=== PATIENT | male | born 1975 | race African-American/Black ===

== ENCOUNTER 2018-08-07 09:12 | Inpatient (IN) | payer MEDICAID ==
[~2018-08-07] VITALS: Ht 190.5 cm; Wt 45.4 kg
[2018-08-07 09:15] VITALS: BP 135/78
[2018-08-07] MEDS ORDERED: NACL 0.9% 1,000 ML IV ONE (10:10)
[2018-08-07 10:48] LABS: BASOPHILS % (AUTO) 0.8 % (0.0-2.0); EOSINOPHILS # (AUTO) 0.2 K/uL (0-0.4); EOSINOPHILS % (AUTO) 4.4 % (0.0-4.0); HEMATOCRIT 45.9 % (36-52); LYMPHOCYTES # (AUTO) 1.4 K/uL (2.0-11.5); LYMPHOCYTES % (AUTO) 28.3 % (20.5-51.1); MEAN CORPUSCULAR HEMOGLOBIN 28 pg (27-31); MEAN CORPUSCULAR HGB CONC 33 g/dL (33-37); MONOCYTES # (AUTO) 0.4 K/uL (0.8-1.0); MONOCYTES % (AUTO) 8.1 % (1.7-9.3); NEUTROPHILS # (AUTO) 2.8 K/uL (1.8-7.7); NEUTROPHILS % (AUTO) 58.4 % (42.2-75.2); PLATELET COUNT (AUTO) 171 K/uL (140-450); RED BLOOD CELL COUNT(AUTO) 5.33 MIL/uL (4.20-6.10); RED CELL DISTRIBUTION WIDTH 14.1 % (11.6-13.7); WHITE BLOOD COUNT (AUTO) 4.8 K/uL (4.8-10.8)
[2018-08-07 11:05] LABS: ANION GAP 10.6 (8-16); CARBON DIOXIDE 32.3 mmol/L (21-32); CREATININE 0.9 mg/dL (0.7-1.3); POTASSIUM 3.9 mmol/L (3.5-5.1)
[2018-08-07 11:15] LABS: PROTHROMBIN TIME 11.4 secs (10.8-13.4)
[2018-08-07 11:17] LABS: ALBUMIN 3.7 g/dL (3.4-5.0); TOTAL BILIRUBIN 0.3 mg/dL (0.0-1.0)
[2018-08-07] MEDS ORDERED: LORazepam 2 MG/ML VIAL IVP ONE (11:45)
[2018-08-07 11:48] LABS: APPEARANCE,URINE CLEAR (CLEAR); BILIRUBIN,URINE NEGATIVE (NEGATIVE); BLOOD, URINE NEGATIVE (NEGATIVE); COLOR,URINE YELLOW (YELLOW); LEUKOCYTE ESTERASE ,URINE NEGATIVE (NEGATIVE); NITRITE, URINE NEGATIVE (NEGATIVE); UGLUCOSE NEGATIVE (NEGATIVE)
[2018-08-07 11:49] LABS: RBC,URINE NONE SEEN /HPF (0-5); WBC,URINE NONE SEEN /HPF (0-5)
[2018-08-07] MEDS ORDERED: NACL 0.9% 1,000 ML IV SCH (12:14)
[2018-08-07] MEDS ORDERED: HYDROcodone/APAP 5/325 MG 1 TAB TAB PO PRN (12:15)
[2018-08-07] MEDS ORDERED: DOCUSATE SODIUM 100 MG GELCAP PO PRN (12:15)
[2018-08-07] MEDS ORDERED: ONDANSETRON 4 MG/2 ML VIAL IM/IVP PRN (12:15)
[2018-08-07] MEDS ORDERED: ZOLPIDEM 5 MG TAB PO PRN (12:15)
[2018-08-07] MEDS ORDERED: ACETAMINOPHEN 325 MG TAB PO PRN (12:15)
[2018-08-07] MEDS ORDERED: SODIUM PHOSPHATE 118 ML ENEM RC SCH (13:00)
[2018-08-07 13:29] LABS: BARBITURATE, URINE NEG. ng/ml (NEG <=200); BENZODIAZEPINE, URINE NEG. ng/mL (NEG <=200); CANNABINOID, URINE NEG. ng/mL (NEG <=50); COCAINE, URINE NEG. ng/mL (NEG <=300); OPIATE, URINE NEG. ng/mL (NEG <=2000); PHENCYCLIDINE SCREEN,URINE NEG. ng/mL (NEG <=25)
[2018-08-07] MEDS ORDERED: MIRABULK PO (13:32)
[2018-08-07] MEDS ORDERED: VITD1000 PO (13:32)
[2018-08-07] MEDS ORDERED: QUET25TA PO (13:33)
[2018-08-07] MEDS ORDERED: [UNRECOGNIZED DRUG - CODE] PO (13:33)
[2018-08-07] MEDS ORDERED: BISA5ECT43 RC (13:33)
[2018-08-07] MEDS ORDERED: [UNRECOGNIZED DRUG - CODE] PO (13:33)
[2018-08-07] MEDS ORDERED: NA P133N16 RC (13:33)
[2018-08-07] MEDS ORDERED: DOCU-299 PO (13:33)
[2018-08-07] MEDS ORDERED: BEN (13:33)
[2018-08-07] MEDS ORDERED: SIME80CT70 PO (13:33)
[2018-08-07] MEDS ORDERED: LEVE750T25 PO (13:33)
[2018-08-07] MEDS ORDERED: ACET325C7 PO (13:33)
[2018-08-07] MEDS ORDERED: ROB1 PO (13:33)
[2018-08-07] MEDS ORDERED: ATRO10DR PO (13:33)
[2018-08-07] MEDS ORDERED: [UNRECOGNIZED DRUG - CODE] TP (13:35)
[2018-08-07] MEDS ORDERED: CHLO480L1 PO (13:35)
[2018-08-07] MEDS ORDERED: [UNRECOGNIZED DRUG - CODE] PO (13:35)
[2018-08-07] MEDS ORDERED: DEXL60EC PO (13:36)
[2018-08-07 14:00] LABS: MAGNESIUM 1.9 mg/dL (1.8-2.4); PHOSPHORUS 4.1 mg/dL (2.5-4.9)
[2018-08-07] MEDS ORDERED: BISACODYL 10 MG SUPP RC SCH (14:00)
[2018-08-07 14:01] LABS: CHOL/HDL RATIO 3.4 (1-4.5); THYROID STIMULATING HORMONE 0.61 uIU/mL (0.34-3.74)
[2018-08-07 15:00] VITALS: BP 119/74
[2018-08-07] MEDS: DEXT 5% /NACL 0.9% 1,000 ML IV SCH (15:19)
[2018-08-07 16:00] VITALS: BP 135/96
[2018-08-07] MEDS ORDERED: LORazepam 2 MG/ML VIAL IM/IVP PRN (16:00)
[2018-08-07] MEDS ORDERED: MAGNESIUM CITRATE 300 ML BTL PO SCH (18:43)
[2018-08-07 20:00] VITALS: BP 103/57
[2018-08-07] MEDS ORDERED: LACTULOSE 20 GM/30 ML UDC PO SCH (21:00)
[2018-08-07] MEDS ORDERED: SENNA 8.6 MG TAB PO SCH (21:00)
[2018-08-08] VITALS: BP 119/61
[2018-08-08] MEDS ORDERED: LORazepam 2 MG/ML VIAL IVP SCH
[2018-08-08 03:25] LABS: ANION GAP 10.1 (8-16); CREATININE 0.8 mg/dL (0.7-1.3); POTASSIUM 4.1 mmol/L (3.5-5.1)
[2018-08-08 04:00] VITALS: BP 104/57
[2018-08-08 04:34] LABS: BASOPHILS % (AUTO) 0.5 % (0.0-2.0); EOSINOPHILS # (AUTO) 0.3 K/uL (0-0.4); EOSINOPHILS % (AUTO) 5.9 % (0.0-4.0); HEMOGLOBIN 15.1 g/dL (12.0-18.0); LYMPHOCYTES # (AUTO) 1.8 K/uL (2.0-11.5); LYMPHOCYTES % (AUTO) 37.2 % (20.5-51.1); MEAN CORPUSCULAR HEMOGLOBIN 28 pg (27-31); MEAN CORPUSCULAR HGB CONC 33 g/dL (33-37); MONOCYTES # (AUTO) 0.5 K/uL (0.8-1.0); MONOCYTES % (AUTO) 9.3 % (1.7-9.3); NEUTROPHILS # (AUTO) 2.3 K/uL (1.8-7.7); NEUTROPHILS % (AUTO) 47.1 % (42.2-75.2); PLATELET COUNT (AUTO) 163 K/uL (140-450); RED BLOOD CELL COUNT(AUTO) 5.35 MIL/uL (4.20-6.10); RED CELL DISTRIBUTION WIDTH 13.7 % (11.6-13.7); WHITE BLOOD COUNT (AUTO) 4.9 K/uL (4.8-10.8)
[2018-08-08] MEDS ORDERED: SIMETHICONE 80 MG TAB.CHEW PO PRN (07:05)
[2018-08-08] MEDS ORDERED: SODIUM PHOSPHATE 118 ML ENEM RC PRN (07:05)
[2018-08-08 08:00] VITALS: BP 107/57
[2018-08-08] MEDS: PANTOPRAZOLE 40 MG TABEC PO SCH (08:53)
[2018-08-08] MEDS ORDERED: NACL 0.9% PO SCH (09:00)
[2018-08-08] MEDS ORDERED: levETIRAcetam 500 MG TAB PO SCH (09:00)
[2018-08-08] MEDS ORDERED: FLAXSEED OIL 1000 MG PO SCH (09:00)
[2018-08-08] MEDS ORDERED: NON-FORMULARY ITEM (Chlorhexidine Gluconate (Periogard 480 Ml) 15 ML) PO SCH (09:00)
[2018-08-08] MEDS ORDERED: [UNRECOGNIZED DRUG - OTHER] PO SCH (09:00)
[2018-08-08] MEDS ORDERED: POLYETHYLENE GLYCOL 17 GM/PKT PO SCH (09:00)
[2018-08-08] MEDS ORDERED: DOCUSATE SODIUM 100 MG GELCAP PO SCH (09:00)
[2018-08-08] MEDS ORDERED: DIMETHICONE TP SCH (09:00)
[2018-08-08] MEDS ORDERED: ATROPINE SULFATE PO SCH (09:00)
[2018-08-08] MEDS ORDERED: DEXLANSOPRAZOLE PO SCH (09:00)
[2018-08-08] MEDS ORDERED: FOS PO SCH (09:00)
[2018-08-08] MEDS ORDERED: CALCIUM CARBONATE 500 MG TAB.CHEW PO SCH (09:00)
[2018-08-08] MEDS ORDERED: GLYCOPYRROLATE 1 MG TAB PO SCH (09:00)
[2018-08-08] MEDS ORDERED: ZINC OXIDE TP SCH (09:00)
[2018-08-08] MEDS ORDERED: MAGNESIUM CITRATE 300 ML BTL PO SCH (09:30)
[2018-08-08] MEDS ORDERED: LORazepam 2 MG/ML VIAL IM/IVP PRN (09:55)
[2018-08-08] MEDS: BISACODYL 5 MG TABEC PO SCH (10:17)
[2018-08-08] MEDS: VITAMIN D 400 IU TAB PO SCH (10:17)
[2018-08-08] MEDS: QUEtiapine FUMARATE 25 MG TAB PO SCH ×2 (10:17→20:27)
[2018-08-08] MEDS: levETIRAcetam 500 MG TAB PO SCH ×2 (10:17→20:26)
[2018-08-08 12:00] VITALS: BP 127/70
[2018-08-08] MEDS ORDERED: ACETAMINOPHEN 325 MG TAB PO PRN (12:00)
[2018-08-08] MEDS: DEXT 5% /NACL 0.9% 1,000 ML IV SCH (13:50)
[2018-08-08] MEDS: SENNA 8.6 MG TAB PO SCH ×2 (14:39→17:29)
[2018-08-08] MEDS: LACTULOSE 20 GM/30 ML UDC PO SCH ×3 (14:39→20:25)
[2018-08-08] MEDS: POLYETHYLENE GLYCOL 17 GM/PKT PO SCH ×2 (14:40→17:29)
[2018-08-08] MEDS: ATROPINE 1% PO SCH ×2 (14:41→17:29)
[2018-08-08 16:00] VITALS: BP 109/64
[2018-08-08 20:00] VITALS: BP 106/72
[2018-08-09] VITALS (12 sets, daily range): BP systolic 106–139; BP diastolic 52–86
[2018-08-09 06:04] LABS: BASOPHILS % (AUTO) 0.4 % (0.0-2.0); EOSINOPHILS # (AUTO) 0.2 K/uL (0-0.4); EOSINOPHILS % (AUTO) 2.5 % (0.0-4.0); HEMATOCRIT 49.2 % (36-52); HEMOGLOBIN 15.9 g/dL (12.0-18.0); LYMPHOCYTES # (AUTO) 1.5 K/uL (2.0-11.5); MEAN CORPUSCULAR HEMOGLOBIN 28 pg (27-31); MEAN CORPUSCULAR HGB CONC 32 g/dL (33-37); MEAN CORPUSCULAR VOLUME 86.8 fL (80-94); MONOCYTES # (AUTO) 0.5 K/uL (0.8-1.0); MONOCYTES % (AUTO) 6.2 % (1.7-9.3); NEUTROPHILS # (AUTO) 6.1 K/uL (1.8-7.7); NEUTROPHILS % (AUTO) 72.9 % (42.2-75.2); PLATELET COUNT (AUTO) 171 K/uL (140-450); RED BLOOD CELL COUNT(AUTO) 5.66 MIL/uL (4.20-6.10); RED CELL DISTRIBUTION WIDTH 13.9 % (11.6-13.7); WHITE BLOOD COUNT (AUTO) 8.3 K/uL (4.8-10.8)
[2018-08-09] MEDS: PANTOPRAZOLE 40 MG TABEC PO SCH (06:17)
[2018-08-09 06:27] LABS: ANION GAP 10.5 (8-16); CARBON DIOXIDE 30.6 mmol/L (21-32); CREATININE 0.9 mg/dL (0.7-1.3); POTASSIUM 4.1 mmol/L (3.5-5.1)
[2018-08-09] MEDS: LACTULOSE 20 GM/30 ML UDC PO SCH (08:55)
[2018-08-09] MEDS: VITAMIN D 400 IU TAB PO SCH (08:56)
[2018-08-09] MEDS: SENNA 8.6 MG TAB PO SCH (08:56)
[2018-08-09] MEDS: POLYETHYLENE GLYCOL 17 GM/PKT PO SCH ×3 (08:57→17:00)
[2018-08-09] MEDS: levETIRAcetam 500 MG TAB PO SCH ×2 (08:57→20:36)
[2018-08-09] MEDS: QUEtiapine FUMARATE 25 MG TAB PO SCH ×2 (08:57→20:36)
[2018-08-09] MEDS: ATROPINE 1% PO SCH ×3 (09:00→17:30)
[2018-08-09] MEDS ORDERED: DEXT 5% / NACL 0.45% 1,000 ML IV SCH (14:00)
[2018-08-09] MEDS ORDERED: fentaNYL 0.05 MG/ML VIAL ONE (14:08)
[2018-08-09] MEDS ORDERED: MIDAZOLAM 2 MG/2 ML VIAL ONE (14:08)
[2018-08-09] MEDS ORDERED: diphenhydrAMINE 50 MG/ML VIAL ONE (14:08)
[2018-08-10] VITALS: BP 104/61
[2018-08-10 04:00] VITALS: BP 113/60
[2018-08-10 06:32] LABS: BASOPHILS % (AUTO) 0.7 % (0.0-2.0); EOSINOPHILS # (AUTO) 0.3 K/uL (0-0.4); HEMATOCRIT 43.1 % (36-52); LYMPHOCYTES # (AUTO) 1.5 K/uL (2.0-11.5); LYMPHOCYTES % (AUTO) 27.9 % (20.5-51.1); MEAN CORPUSCULAR HEMOGLOBIN 28 pg (27-31); MEAN CORPUSCULAR HGB CONC 32 g/dL (33-37); MEAN CORPUSCULAR VOLUME 86.8 fL (80-94); MONOCYTES # (AUTO) 0.5 K/uL (0.8-1.0); MONOCYTES % (AUTO) 8.9 % (1.7-9.3); NEUTROPHILS # (AUTO) 3.1 K/uL (1.8-7.7); NEUTROPHILS % (AUTO) 57.5 % (42.2-75.2); PLATELET COUNT (AUTO) 141 K/uL (140-450); RED BLOOD CELL COUNT(AUTO) 4.97 MIL/uL (4.20-6.10); RED CELL DISTRIBUTION WIDTH 13.9 % (11.6-13.7); WHITE BLOOD COUNT (AUTO) 5.4 K/uL (4.8-10.8)
[2018-08-10] MEDS: NACL 0.45% 1,000 ML IV SCH (06:33)
[2018-08-10 07:07] LABS: ANION GAP 12.2 (8-16); CARBON DIOXIDE 27.7 mmol/L (21-32); CREATININE 0.9 mg/dL (0.7-1.3); POTASSIUM 3.9 mmol/L (3.5-5.1)
[2018-08-10 07:30] VITALS: BP 107/65
[2018-08-10] MEDS: LACTULOSE 20 GM/30 ML UDC PO SCH (09:55)
[2018-08-10] MEDS ORDERED: ACETAMINOPHEN EXTRA STRENGTH 500 MG TAB PO PRN (09:55)
[2018-08-10] MEDS: VITAMIN D 400 IU TAB PO SCH (09:55)
[2018-08-10] MEDS: POLYETHYLENE GLYCOL 17 GM/PKT PO SCH ×3 (09:56→17:00)
[2018-08-10] MEDS: BISACODYL 5 MG TABEC PO SCH (09:56)
[2018-08-10] MEDS: SENNA 8.6 MG TAB PO SCH (09:56)
[2018-08-10] MEDS: QUEtiapine FUMARATE 25 MG TAB PO SCH ×2 (09:56→20:59)
[2018-08-10] MEDS: levETIRAcetam 500 MG TAB PO SCH ×2 (09:56→20:59)
[2018-08-10] MEDS: ATROPINE 1% PO SCH ×3 (10:04→17:00)
[2018-08-10 12:00] VITALS: BP 120/69
[2018-08-10 17:00] VITALS: BP 97/50
[2018-08-10 20:00] VITALS: BP 107/58
[2018-08-11] VITALS: BP 101/42
[2018-08-11] MEDS: NACL 0.45% 1,000 ML IV SCH (06:35)
[2018-08-11 07:39] LABS: EOSINOPHILS # (AUTO) 0.4 K/uL (0-0.4); HEMATOCRIT 39.5 % (36-52); MEAN CORPUSCULAR VOLUME 86.1 fL (80-94); MONOCYTES # (AUTO) 0.5 K/uL (0.8-1.0)
[2018-08-11 07:43] LABS: ANION GAP 9.7 (8-16); CARBON DIOXIDE 28.2 mmol/L (21-32); CREATININE 0.8 mg/dL (0.7-1.3); POTASSIUM 3.9 mmol/L (3.5-5.1)
[2018-08-11 07:55] LABS: BASOPHILS % (AUTO) 0.4 % (0.0-2.0); EOSINOPHILS % (AUTO) 6.1 % (0.0-4.0); LYMPHOCYTES # (AUTO) 1.7 K/uL (2.0-11.5); LYMPHOCYTES % (AUTO) 28.9 % (20.5-51.1); MEAN CORPUSCULAR HEMOGLOBIN 28 pg (27-31); MEAN CORPUSCULAR HGB CONC 33 g/dL (33-37); MONOCYTES % (AUTO) 8.7 % (1.7-9.3); NEUTROPHILS # (AUTO) 3.3 K/uL (1.8-7.7); NEUTROPHILS % (AUTO) 55.9 % (42.2-75.2); PLATELET COUNT (AUTO) 125 K/uL (140-450); RED BLOOD CELL COUNT(AUTO) 4.59 MIL/uL (4.20-6.10); RED CELL DISTRIBUTION WIDTH 13.6 % (11.6-13.7); WHITE BLOOD COUNT (AUTO) 5.8 K/uL (4.8-10.8)
[2018-08-11] MEDS ORDERED: NEOMYCIN/POLYMYXIN/BACITRACIN OIN 15 GM TUBE TP SCH (09:00)
[2018-08-11] MEDS: ATROPINE 1% PO SCH (09:00)
[2018-08-11] MEDS ORDERED: POLY17PD46 PO (09:09)
[2018-08-11] MEDS ORDERED: SENN-89 PO (09:09)
[2018-08-11] MEDS: QUEtiapine FUMARATE 25 MG TAB PO SCH (10:19)
[2018-08-11] MEDS: LACTULOSE 20 GM/30 ML UDC PO SCH (10:19)
[2018-08-11] MEDS: VITAMIN D 400 IU TAB PO SCH (10:19)
[2018-08-11] MEDS: SENNA 8.6 MG TAB PO SCH (10:19)
[2018-08-11] MEDS: levETIRAcetam 500 MG TAB PO SCH (10:20)
[2018-08-11] MEDS: POLYETHYLENE GLYCOL 17 GM/PKT PO SCH (10:20)
== END 2018-08-11 13:15 | DRG 247 ==
LOC: MED 09:12 → MTU 12:14
PROVIDERS: ADMIT General Practice; ATTEND General Practice
PROC: 0DB68ZX Excision of Stomach, Via Natural or Artificial Opening Endoscopic, Diagnostic (ICD-10-PCS; principal; 2018-08-09 16:00)
PROC: 0DJD8ZZ Inspection of Lower Intestinal Tract, Via Natural or Artificial Opening Endoscopic (ICD-10-PCS; 2018-08-09 16:00)
DX: K56.41 Fecal impaction (principal); E43 Unspecified severe protein-calorie malnutrition; E87.0 Hyperosmolality and hypernatremia; D69.6 Thrombocytopenia, unspecified; I95.9 Hypotension, unspecified; E87.8 Other disorders of electrolyte and fluid balance, not elsewhere classified; G80.0 Spastic quadriplegic cerebral palsy; K92.9 Disease of digestive system, unspecified; M81.0 Age-related osteoporosis without current pathological fracture; K21.9 Gastro-esophageal reflux disease without esophagitis; E78.5 Hyperlipidemia, unspecified; H91.93 Unspecified hearing loss, bilateral; J30.9 Allergic rhinitis, unspecified; H54.7 Unspecified visual loss; G40.909 Epilepsy, unspecified, not intractable, without status epilepticus; Z79.899 Other long term (current) drug therapy; Z68.1 Body mass index [BMI] 19.9 or less, adult
CPT/HCPCS: 36415; 71045; 80048; 80053; 80305; 81001; 83036; 83605; 83690; 83735; 83880; 84100; 84134; 84443; 84484; 85025; 85610; 85651; 85730; 86677; 87040; 87081; 87086; 92610; 93005; 96361; 96374; 99285; C1758; J1200; J2060; J2250; J3010; J7030; J7042; Q0092

== ENCOUNTER 2019-07-23 22:21 | Inpatient (IN) | payer MEDICAID ==
[~2019-07-23] VITALS: Ht 167.6 cm; Wt 41.3 kg
[~2019-07-23 22:21] MED LIST: ACET325C8 PO; ATRO10DR PO; BISA-188 RC; CHLO480L1 PO; DEXL60EC PO; DOCU-299 PO; LEVE750T25 PO; NA P133N16 RC; POLY17PD46 PO; QUET25TA PO; ROB1 PO; SENN-74 PO; SIME80TA22 PO; VITD1000 PO; [UNRECOGNIZED DRUG - CODE] PO; [UNRECOGNIZED DRUG - CODE] PO; [UNRECOGNIZED DRUG - CODE] PO; [UNRECOGNIZED DRUG - CODE] TP
[2019-07-23 22:35] VITALS: BP 104/73
--- NOTE | 2019-07-23 22:38 | NUR ---
TO LOBBY VIA WHEELCHAIR A/W BED.
--- NOTE | 2019-07-23 23:22 | NUR ---
PT TO BED #11 BY WHEEL CHAIR
--- NOTE | 2019-07-23 23:25 | NUR ---
PT CAME INTO ER WITH C/O N/V/D THAT STARTED TODAY, IN THE AFTERNOON. PT IS NON VERBAL AND IS WHEEL CHAIR BOUND. PT HAS NO PAIN 0/10 USING FLACC SCALE. PT HAS A CLUBHOUSE ATTENDANT AT BEDSIDE, PT IS CONTRACTED ON ALL FOUR EXTREMETIES. PT VOMITED ONE TIME PRIOR TO ER. ERMD MADE AWARE OF STATUS. SAFETY MEASURES IN PLACE.
--- NOTE | 2019-07-24 00:09 | NUR ---
Dr. Zavala examining patient.
[2019-07-24] MEDS ORDERED: NACL 0.9% 1,000 ML IV ONE (00:25)
[2019-07-24 00:35] LABS: HEMATOCRIT 52.7 % (36-52); WHITE BLOOD COUNT (AUTO) 8.4 K/uL (4.8-10.8)
[2019-07-24 00:42] LABS: HEMOGLOBIN 17.6 g/dL (12.0-18.0); MEAN CORPUSCULAR HEMOGLOBIN 30 pg (27-31); MEAN CORPUSCULAR HGB CONC 33 g/dL (33-37); MEAN CORPUSCULAR VOLUME 90.2 fL (80-94); PLATELET COUNT (AUTO) 127 K/uL (140-450); RED BLOOD CELL COUNT(AUTO) 5.84 MIL/uL (4.20-6.10)
--- NOTE | 2019-07-24 00:45 | NUR ---
URINE STRAIGHT CATH PERFORMED. 14 TAMAZIGHT. PT TOLLERATED PROCEDURE WELL. WALKED TO LAB.
[2019-07-24 00:49] LABS: ANION GAP 12.3 (8-16); CARBON DIOXIDE 33.2 mmol/L (21-32); POTASSIUM 4.5 mmol/L (3.5-5.1)
[2019-07-24 00:55] LABS: TOTAL BILIRUBIN 0.3 mg/dL (0.0-1.0)
[2019-07-24 01:13] LABS: APPEARANCE,URINE CLEAR (CLEAR); BILIRUBIN,URINE NEGATIVE (NEGATIVE); BLOOD, URINE NEGATIVE (NEGATIVE); COLOR,URINE YELLOW (YELLOW); LEUKOCYTE ESTERASE ,URINE NEGATIVE (NEGATIVE); NITRITE, URINE NEGATIVE (NEGATIVE); UGLUCOSE NEGATIVE (NEGATIVE)
[2019-07-24 01:48] LABS: BASOPHILS % (MANUAL) 0 % (0-2); EOSINOPHILS % (MANUAL) 4 % (0-4); LYMPHOCYTES % (MANUAL) 19 % (20-46); MONOCYTES % (MANUAL) 6 % (5-12)
[2019-07-24] MEDS ORDERED: MORPHINE SULFATE 2 MG/ML SYR IVP PRN (02:20)
[2019-07-24] MEDS ORDERED: ONDANSETRON 4 MG/2 ML VIAL IM/IVP PRN (02:20)
[2019-07-24] MEDS ORDERED: HYDROcodone/APAP 7.5/325 MG 1 TAB PO PRN (02:20)
[2019-07-24 02:45] LABS: PROTHROMBIN TIME 11.6 secs (10.8-13.4)
[2019-07-24] MEDS ORDERED: DICLOFENAC 1% GEL TP (02:45)
[2019-07-24] MEDS ORDERED: VALP250S20 PO (02:45)
[2019-07-24] MEDS ORDERED: BACL10TA4 PO (02:45)
[2019-07-24 02:50] LABS: CHOL/HDL RATIO 4.8 (1-4.5); FREE T4 (FREE THYROXINE) 0.86 ng/dL (0.76-1.46); MAGNESIUM 1.9 mg/dL (1.8-2.4); PHOSPHORUS 4.2 mg/dL (2.5-4.9); THYROID STIMULATING HORMONE 0.99 uIU/mL (0.34-3.74)
--- NOTE | 2019-07-24 03:15 | NUR ---
PT LAYING IN BED, AWAKE, MILDLY RESTLESS, AT BASELINE PER PT'S CAREGIVER. VS NOTED. PT'S WHEELCHAIR, BELONGINGS AND CLOTHES SENT WITH PT'S CAREGIVER. ALL NEEDS MET.
[2019-07-24 03:20] VITALS: BP 109/67
--- NOTE | 2019-07-24 03:20 | NUR ---
Patient will be admitted to care of DR MEYER. Admited to [facility]. Will go to room 111B. Belongings list completed. Report to INESSA LONGORIA.
--- NOTE | 2019-07-24 03:20 | NUR ---
RECEIVED FROM ED PATIENT VIA GURNEY ESCORTED BY CAREGIVER, PT CEREBRAL PALSY SPASTIC QUAD, GRAHAM PT. NON VERBAL, BEDREST. PT VITALS TAKEN; MRSA SWAB DONE. HISTORY PROVIDED BY CAREGIVER. PHYSICAL ASSESSMENT DONE. SKIN INTACT; BED PLACED IN LOW POSITTION. POC DISCUSSED TO CAREGIVER. CALL LIGHT PLACED W/IN EASY REACH Addendum: 07/24/19 at 0413 by Eryn Cowan RN PT MOANING, BUT CAREGIVER THAT IS HIS BASELINE PT HAS AGITATION.
[2019-07-24] MEDS: NACL 0.9% 1,000 ML IV SCH ×2 (03:43→18:15)
--- NOTE | 2019-07-24 04:11 | NUR ---
PT SLEEPING AT THIS TIME, NO RESPIRATORY DISTRESS NOTED
--- NOTE | 2019-07-24 07:15 | NUR ---
RECEIVED REPORT FROM CRYPTOLOGIC LINGUIST NURSE INESSA FOR CONTINUITY OF CARE. PT IN STABLE CONDITION. RESPIRATIONS EVEN AND UNLABORED, ROOM AIR. IV INTACT AND PATENT. SAFETY MEASURES IN PLACE. BED IN LOW POSITION. BED ALARM ON. CALL LIGHT AT BEDSIDE. WILL CONTINUE TO MONITOR.
[2019-07-24 08:00] VITALS: BP 116/64
--- NOTE | 2019-07-24 08:19 | NUR ---
PATIENT HAS BEEN SCREENED AND CATEGORIZED HIGH NUTRITION RISK. PATIENT WILL BE SEEN WITHIN 1-2 DAYS OF ADMISSION. 07/24/19-07/25/[address]
--- NOTE | 2019-07-24 09:33 | NUR ---
PT LYING IN BED CAREGIVER AT BEDSIDE. BED IN LOW POSITION. BED ALARM ON. CALL LIGHT AT BEDSIDE. WILL CONTINUE TO MONITOR.
[2019-07-24] MEDS ORDERED: BISACODYL 10 MG SUPP RC PRN (10:30)
[2019-07-24 10:37] LABS: BASOPHILS % (AUTO) 0.5 % (0.0-2.0); EOSINOPHILS # (AUTO) 0.4 K/uL (0-0.4); HEMATOCRIT 41.7 % (36-52); HEMOGLOBIN 13.6 g/dL (12.0-18.0); LYMPHOCYTES # (AUTO) 1.8 K/uL (2.0-11.5); LYMPHOCYTES % (AUTO) 30.9 % (20.5-51.1); MEAN CORPUSCULAR HEMOGLOBIN 30 pg (27-31); MEAN CORPUSCULAR HGB CONC 33 g/dL (33-37); MEAN CORPUSCULAR VOLUME 90.4 fL (80-94); MONOCYTES # (AUTO) 0.4 K/uL (0.8-1.0); MONOCYTES % (AUTO) 7.6 % (1.7-9.3); NEUTROPHILS # (AUTO) 3.1 K/uL (1.8-7.7); PLATELET COUNT (AUTO) 110 K/uL (140-450); RED BLOOD CELL COUNT(AUTO) 4.61 MIL/uL (4.20-6.10); RED CELL DISTRIBUTION WIDTH 14.3 % (11.6-13.7); WHITE BLOOD COUNT (AUTO) 5.8 K/uL (4.8-10.8)
[2019-07-24] MEDS ORDERED: MINERAL OIL 135 ML ENEM RC PRN (10:40)
[2019-07-24] MEDS ORDERED: POLYETHYLENE GLYCOL 17 GM/PKT PO SCH ×2 (10:43→21:00)
[2019-07-24] MEDS: levETIRAcetam 500 MG TAB PO SCH ×2 (10:54→20:48)
[2019-07-24] MEDS: GLYCOPYRROLATE 1 MG TAB PO SCH ×2 (10:54→20:48)
[2019-07-24] MEDS: DIVALPROEX 500 MG TABEC PO SCH ×2 (10:54→21:09)
[2019-07-24] MEDS: BACLOFEN 10 MG TAB PO SCH ×3 (10:55→18:16)
[2019-07-24] MEDS: DOCUSATE SODIUM 100 MG GELCAP PO SCH (10:55)
[2019-07-24 11:00] LABS: CREATININE 0.9 mg/dL (0.7-1.3); POTASSIUM 4.3 mmol/L (3.5-5.1)
[2019-07-24] MEDS ORDERED: BISACODYL 10 MG SUPP RC SCH (11:00)
[2019-07-24 11:19] LABS: ANION GAP 10.9 (8-16); CARBON DIOXIDE 29.4 mmol/L (21-32)
--- NOTE | 2019-07-24 11:47 | NUR ---
PT LYING IN BED ROCKING BACK AND FORTH AT THIS TIME. CAREGIVER EXPLAINS THIS IS NORMAL IF AT A STEADY PACE WITH A LOW MOAN. BED IN LOW POSITION. BED ALARM ON. CALL LIGHT AT BEDSIDE. WILL CONTINUE TO MONITOR.
--- NOTE | 2019-07-24 13:06 | NUR ---
07/24/19 RD INITIAL ASSESSMENT COMPLETED PLEASE REFER TO NUTRITION ASSESSMENT UNDER CARE ACTIVITY FOR ESTIMATED NUTRITIONAL NEEDS. 1. RECOMMEND PUREE DIET WITH NECTAR THICK LIQUIDS TOLERATED 2. PROVIDE FEEDING ASSISTANCE WHEN PO DIET IS IMPLEMENTED 3. RD TO FOLLOW-UP 3-5 DAYS, MODERATE RISK GILA GRIGGS, RD
[2019-07-24] MEDS: SENNA 8.6 MG TAB PO SCH ×2 (13:07→18:17)
[2019-07-24] MEDS: POLYETHYLENE GLYCOL 17 GM/PKT PO SCH ×3 (13:07→20:49)
--- NOTE | 2019-07-24 13:23 | NUR ---
GAVE ORDERED DUE MEDICATIONS AT THIS TIME. PT IN STABLE CONDITION. WILL CONTINUE TO MONITOR. CAREGIVER AT BEDSIDE.
--- NOTE | 2019-07-24 13:51 | NUR ---
*S.T. Bedside swallow eval completed* See report. Pt presents w/ moderate oropharyngeal dysphagia c/b limited oral ROM, coordination, difficulty procuring oral bolus, delayed pharyngeal swallow response and lingual thrusting with each swallow. No overt s/s aspiration, however. Pt requires max assist with positioning to upright position due to kyphosis and contractures. Pt also requires 1:1 feeder. Recommend: 1) Advance to pureed diet, nectar thick liquids by spoon only. No straws. 2) P.O. meds okay whole and mixed with puree such as applesauce. 3) 1:1 feeder w/ aspiration precautions. Pt is functioning at his reported baseline. No further swallow tx indicated at this time. DC to [facility]. Endorsed to VON Tucker who was at bedside. Time [id number]
--- NOTE | 2019-07-24 15:02 | NUR ---
PT LYING IN BED SLEEP AT THIS TIME. BED IN LOW POSITION. BED ALARM ON. CALL LIGHT AT BEDSIDE. WILL CONTINUE TO MONITOR.
[2019-07-24 16:00] VITALS: BP 110/62
[2019-07-24] MEDS ORDERED: ALBUTEROL SULFATE/IPRATROPIU 3 ML SOL IH PRN (16:05)
--- NOTE | 2019-07-24 17:32 | NUR ---
PT LYING IN BED ROCKING AT A SLOW RHYTHM AT THIS TIME. BED IN LOW POSITION. BED ALARM ON. CALL LIGHT AT BEDSIDE. WILL CONTINUE TO MONITOR.
[2019-07-24] MEDS: METOCLOPRAMIDE 10 MG/2 ML INJ VIAL IVP SCH ×2 (18:16→23:33)
--- NOTE | 2019-07-24 19:35 | NUR ---
GAVE REPORT TO VIDEO PLAYER MECHANIC NURSE KELSI FOR CONTINUITY OF CARE. PT IN STABLE CONDITION.
--- NOTE | 2019-07-24 19:36 | NUR ---
RECD. RESTING IN BED, AWAKE, NON-VERBAL ONLY MAKE SOUNDS. RESPIRATION EVEN AND UNLABORED. IV OF NS AT 80 ML/HR INFUSING, RIGHT FOREARM G2O. SAFETY MEASURES ENFORCED,BED ON LOWEST POSITION, SIDE RAILS PADDED FOR SEIZURE PRECAUTION. INCONTINENT. BILATERAL LOWER EXTREMITIES CONTRACTED. PLAN OF CARE DISCUSSED. NEEDS REINFORCEMENT. NO APPEARANCE OF PAIN NOTED, FLACC - 0.
[2019-07-24 20:00] VITALS: BP 104/74
--- NOTE | 2019-07-24 20:00 | NUR ---
Patient's Plan of Care was discussed and reviewed with RECEPTION INTERVIEWER: KELSI CONKLIN LVN
--- NOTE | 2019-07-24 20:48 | NUR ---
DUE PO MEDICATIONS GIVEN WITH APPLE SAUCE, THICKENER USED FOR LIQUIDS. NO S/S OF ASPIRATION NOTED.
[2019-07-24] MEDS ORDERED: MAGNESIUM CITRATE 300 ML BTL PO SCH (21:00)
--- NOTE | 2019-07-24 21:15 | NUR ---
MANUEL HUNG AND RUNNING. PT TOLERATING WELL.
[2019-07-24] MEDS: PIPERACILLIN/TAZOBACTAM 3.375 GM in DEXTROSE 5% 50 ML IV SCH (21:28)
--- NOTE | 2019-07-24 23:33 | NUR ---
REGLAN GIVEN IVP. PT TOLERATED WELL.
--- NOTE | 2019-07-25 | NUR ---
STILL AWAKE, IN BED. CHECKED FOR BM, NONE NOTED.
[2019-07-25] MEDS: METOCLOPRAMIDE 10 MG/2 ML INJ VIAL IVP SCH ×4 (05:15→23:36)
[2019-07-25] MEDS: PIPERACILLIN/TAZOBACTAM 3.375 GM in DEXTROSE 5% 50 ML IV SCH ×3 (05:15→21:57)
--- NOTE | 2019-07-25 05:15 | NUR ---
REGLAN GIVEN IVP. ZOSYN HUNG AND RUNNING. PT TOLERATING WELL.
[2019-07-25] MEDS: NACL 0.45% 1,000 ML IV SCH ×2 (06:25→23:05)
--- NOTE | 2019-07-25 07:00 | NUR ---
ALL MEDICATIONS FOR BM GIVEN BUT PATIENT STILL HAS NO BM. WILL ENDORSE TO AM NURSE FOR CONTINUITY OF CARE.
--- NOTE | 2019-07-25 07:15 | NUR ---
RECEIVED BEDSIDE REPORT FROM DEGREASING SOLUTION MIXER NURSE FOR CONTINUITY OF CARE. PATIENT IS AWAKE AND RESTING ON BED AT THIS TIME. PATIENT IS AAOX0, APHASIC AND DEAFNESS ON BOTH EARS, BLIND BILATERALLY. RESPIRATION EVEN AND UNLABORED ON RA. NO SIGNS OF DISTRESS NOTED. IV PATENT AND INTACT, INFUSING PER MD ORDER. PATIENT IS INCONTINENT AND BEDREST. SKIN INTACT AND CLEAN. SEIZURE PRECAUTION AND FALL PRECAUTION IN PLACE. BED IN LOW POSITION AND CALL LIGHT WITHIN REACH. BED ALARM ACTIVATED.
[2019-07-25 07:39] LABS: BASOPHILS % (AUTO) 0.4 % (0.0-2.0); EOSINOPHILS # (AUTO) 0.1 K/uL (0-0.4); EOSINOPHILS % (AUTO) 0.8 % (0.0-4.0); HEMATOCRIT 41.8 % (36-52); HEMOGLOBIN 13.7 g/dL (12.0-18.0); LYMPHOCYTES # (AUTO) 1.6 K/uL (2.0-11.5); LYMPHOCYTES % (AUTO) 22.2 % (20.5-51.1); MEAN CORPUSCULAR HEMOGLOBIN 30 pg (27-31); MEAN CORPUSCULAR HGB CONC 33 g/dL (33-37); MEAN CORPUSCULAR VOLUME 90.5 fL (80-94); MONOCYTES # (AUTO) 0.6 K/uL (0.8-1.0); MONOCYTES % (AUTO) 7.8 % (1.7-9.3); NEUTROPHILS # (AUTO) 5.1 K/uL (1.8-7.7); NEUTROPHILS % (AUTO) 68.8 % (42.2-75.2); PLATELET COUNT (AUTO) 107 K/uL (140-450); RED BLOOD CELL COUNT(AUTO) 4.62 MIL/uL (4.20-6.10); RED CELL DISTRIBUTION WIDTH 14.1 % (11.6-13.7); WHITE BLOOD COUNT (AUTO) 7.4 K/uL (4.8-10.8)
[2019-07-25 07:58] LABS: CARBON DIOXIDE 25.4 mmol/L (21-32); CREATININE 0.9 mg/dL (0.7-1.3); POTASSIUM 3.4 mmol/L (3.5-5.1)
[2019-07-25 08:00] VITALS: BP 95/58
[2019-07-25 08:08] LABS: MAGNESIUM 2.1 mg/dL (1.8-2.4); PHOSPHORUS 3.2 mg/dL (2.5-4.9)
[2019-07-25] MEDS ORDERED: POTASSIUM CHLORIDE 10 MEQ TABER PO SCH (09:00)
[2019-07-25] MEDS ORDERED: SENNA 8.6 MG TAB PO SCH (09:00)
[2019-07-25] MEDS: DOCUSATE SODIUM 100 MG GELCAP PO SCH (09:48)
[2019-07-25] MEDS: GLYCOPYRROLATE 1 MG TAB PO SCH ×2 (09:48→21:17)
[2019-07-25] MEDS: DIVALPROEX 500 MG TABEC PO SCH ×2 (09:49→21:18)
[2019-07-25] MEDS: SENNA 8.6 MG TAB PO SCH ×3 (09:49→17:12)
[2019-07-25] MEDS: levETIRAcetam 500 MG TAB PO SCH ×2 (09:49→21:17)
[2019-07-25] MEDS: BACLOFEN 10 MG TAB PO SCH ×3 (09:49→17:12)
[2019-07-25] MEDS: POLYETHYLENE GLYCOL 17 GM/PKT PO SCH ×4 (09:50→21:19)
--- NOTE | 2019-07-25 09:50 | NUR ---
ADMINISTERED MEDS PER MD ORDER, MIXED WITH APPLE SAUCE AND THICKENED WATER FOR ASPIRATION PRECAUTION, PATIENT TOLERATED WELL. MEDS EDUCATION PROVIDED TO PATIENT AND REINFORCEMENT NEEDED. PATIENT AWAKE AND RESTING ON BED. FLACC 0. RESPIRATION EVEN AND UNLABORED ON RA. NO SIGNS OF DISTRESS NOTED. SAFETY MEASURES IN PLACE. FALL RISK PROTOCOL IN PLACE AND BED ALARM ACTIVATED. SEIZURE PRECAUTION IN PLACE AND BOTH SIDE RAILS PADDED. BED IN LOW POSITION AND CALL LIGHT WITHIN REACH.
--- NOTE | 2019-07-25 11:46 | NUR ---
PATIENT AWAKE AND RESTING ON BED AT THIS TIME. FLACC 0. NO SIGNS OF DISTRESS NOTED. SAFETY MEASURES IN PLACE. BED IN LOW POSITION AND CALL LIGHT WITHIN REACH. FALL RISK PROTOCOL IN PLACE AND BED ALARM ACTIVATED.
--- NOTE | 2019-07-25 12:28 | NUR ---
ADMINISTERED MED VIA IVP PER MD ORDER, PATIENT TOLERATED WELL. MED EDUCATION PROVIDED TO PATIENT AND REINFORCEMENT NEEDED. RAMP AGENT IS ASSISTING PATIENT FOR LUNCH. NO SIGNS OF DISTRESS NOTED. SAFETY MEASURES IN PLACE. BED ALARM ACTIVATED.
--- NOTE | 2019-07-25 15:48 | NUR ---
PATIENT IS RESTING ON BED AT THIS TIME. FLACC 0. NO SIGNS OF DISTRESS NOTED. SAFETY MEASURES IN PLACE. FALL RISK PROTOCOL IN PLACE AND BED ALARM ACTIVATED. SEIZURE PRECAUTION IN PLACE AND BOTH SIDE RAILS PADDED. BED IN LOW POSITION AND CALL LIGHT WITHIN REACH.
[2019-07-25 16:00] VITALS: BP 115/69
--- NOTE | 2019-07-25 16:56 | NUR ---
WITH ASSISTANCE FROM ARELY, ADMINISTERED BISACODYL SUPPOSITORY, PATIENT TOLERATED WELL. MEDS EDUCATION PROVIDED TO PATIENT AND REINFORCEMENT NEEDED. PATIENT AWAKE AND RESTING ON BED. FLACC 0. RESPIRATION EVEN AND UNLABORED ON RA. NO SIGNS OF DISTRESS NOTED. SAFETY MEASURES IN PLACE. FALL RISK PROTOCOL IN PLACE AND BED ALARM ACTIVATED. SEIZURE PRECAUTION IN PLACE AND BOTH SIDE RAILS PADDED. BED IN LOW POSITION AND CALL LIGHT WITHIN REACH.
[2019-07-25] MEDS ORDERED: BISACODYL 10 MG SUPP RC SCH (17:00)
[2019-07-25] MEDS ORDERED: MAGNESIUM CITRATE 300 ML BTL PO SCH (17:30)
[2019-07-25] MEDS ORDERED: MINERAL OIL 135 ML ENEM RC SCH (17:30)
--- NOTE | 2019-07-25 17:37 | NUR ---
WITH ASSISTANCE FROM ADDICTION NURSE, ADMINISTERED FLEET ENEMA, PATIENT TOLERATED WELL. MEDS EDUCATION PROVIDED TO PATIENT AND REINFORCEMENT NEEDED. PATIENT AWAKE AND RESTING ON BED. NO SIGNS OF DISTRESS NOTED. SAFETY MEASURES IN PLACE. FALL RISK PROTOCOL IN PLACE AND BED ALARM ACTIVATED. SEIZURE PRECAUTION IN PLACE AND BOTH SIDE RAILS PADDED. BED IN LOW POSITION AND CALL LIGHT WITHIN REACH.
--- NOTE | 2019-07-25 19:32 | NUR ---
ENDORSED PATIENT AT BEDSIDE TO CONTINUOUS PILLOWCASE CUTTER NURSE FOR CONTINUITY OF CARE. PATIENT AWAKE AND RESTING ON BED. NO SIGNS OF DISTRESS NOTED. SAFETY MEASURES IN PLACE. BED IN LOW POSITION AND CALL LIGHT WITHIN REACH. FALL RISK PROTOCOL IN PLACE AND BED ALARM ACTIVATED.
[2019-07-25 20:00] VITALS: BP 105/59
--- NOTE | 2019-07-25 20:00 | NUR ---
Patient's Plan of Care was discussed and reviewed with ULTRASONIC HAND SOLDERER: KELSI CONKLIN LVN
--- NOTE | 2019-07-25 21:15 | NUR ---
HAD A LARGE BM. CLEANSED AND REPOSITIONED IN BED, WITH PILLOWS. STOOL FOR OCCULT BLOOD COLLECTED AND SENT TO LAB.
--- NOTE | 2019-07-25 21:17 | NUR ---
DUE PO MEDICATIONS GIVEN WITH PUDDING AND JUICE WITH THICKENER. TOLERATED WELL.
--- NOTE | 2019-07-25 21:57 | NUR ---
MANUEL HUNG AND RUNNING. PT TOLERATING WELL.
--- NOTE | 2019-07-25 22:30 | NUR ---
AWAKE, OCCASIONALLY ROCKS HIMSELF IN BED.
--- NOTE | 2019-07-26 | NUR ---
SLEEPING COMFORTABLY IN BED. VS STABLE.
[2019-07-26] MEDS: NACL 0.45% 1,000 ML IV SCH (03:44)
[2019-07-26] MEDS: PIPERACILLIN/TAZOBACTAM 3.375 GM in DEXTROSE 5% 50 ML IV SCH ×3 (04:09→22:23)
--- NOTE | 2019-07-26 04:09 | NUR ---
MANUEL HUNG AND RUNNING. PT TOLERATING WELL.
[2019-07-26] MEDS: METOCLOPRAMIDE 10 MG/2 ML INJ VIAL IVP SCH ×3 (05:08→18:11)
--- NOTE | 2019-07-26 05:08 | NUR ---
REGLAN GIVEN IVP. PT TOLERATED WELL.
--- NOTE | 2019-07-26 06:33 | NUR ---
CHECKED FOR BM BUT NONE NOTED, ONLY VOIDED A LOT. CLEANSED AND REPOSITIONED FOR COMFORT IN BED WITH PILLOWS.
--- NOTE | 2019-07-26 07:20 | NUR ---
RECEIVED BEDSIDE REPORT FROM TIMBER CUTTER NURSE FOR CONTINUITY OF CARE. PATIENT IS AWAKE WITH BOTH EYES OPEN AND RESTING ON BED AT THIS TIME. PATIENT IS AAOX0, APHASIC AND DEAFNESS ON BOTH EARS, BLIND BILATERALLY. RESPIRATION EVEN AND UNLABORED ON RA. NO SIGNS OF DISTRESS NOTED. IV PATENT AND INTACT, INFUSING PER MD ORDER. PATIENT IS INCONTINENT AND BEDREST. SKIN INTACT AND CLEAN. ASPIRATION PRECAUTION, SEIZURE PRECAUTION AND FALL PRECAUTION IN PLACE. BED IN LOW POSITION AND CALL LIGHT WITHIN REACH. BED ALARM ACTIVATED.
[2019-07-26 08:00] VITALS: BP 91/47
[2019-07-26 09:25] LABS: BASOPHILS % (AUTO) 0.6 % (0.0-2.0); EOSINOPHILS # (AUTO) 0.6 K/uL (0-0.4); EOSINOPHILS % (AUTO) 9.9 % (0.0-4.0); HEMATOCRIT 40.7 % (36-52); HEMOGLOBIN 13.3 g/dL (12.0-18.0); LYMPHOCYTES # (AUTO) 1.9 K/uL (2.0-11.5); LYMPHOCYTES % (AUTO) 34.4 % (20.5-51.1); MEAN CORPUSCULAR HEMOGLOBIN 30 pg (27-31); MEAN CORPUSCULAR HGB CONC 33 g/dL (33-37); MEAN CORPUSCULAR VOLUME 91.1 fL (80-94); MONOCYTES # (AUTO) 0.4 K/uL (0.8-1.0); MONOCYTES % (AUTO) 7.7 % (1.7-9.3); NEUTROPHILS # (AUTO) 2.7 K/uL (1.8-7.7); NEUTROPHILS % (AUTO) 47.4 % (42.2-75.2); PLATELET COUNT (AUTO) 91 K/uL (140-450); RED BLOOD CELL COUNT(AUTO) 4.47 MIL/uL (4.20-6.10); RED CELL DISTRIBUTION WIDTH 13.9 % (11.6-13.7); WHITE BLOOD COUNT (AUTO) 5.6 K/uL (4.8-10.8)
[2019-07-26] MEDS: PANTOPRAZOLE 40 MG INJ VIAL IVP SCH (09:33)
[2019-07-26] MEDS: GLYCOPYRROLATE 1 MG TAB PO SCH ×2 (09:33→22:21)
[2019-07-26] MEDS: DOCUSATE SODIUM 100 MG GELCAP PO SCH (09:34)
[2019-07-26] MEDS: DIVALPROEX 500 MG TABEC PO SCH ×2 (09:34→22:20)
[2019-07-26] MEDS: SENNA 8.6 MG TAB PO SCH ×3 (09:34→18:11)
[2019-07-26] MEDS: levETIRAcetam 500 MG TAB PO SCH ×2 (09:34→22:20)
[2019-07-26] MEDS: BACLOFEN 10 MG TAB PO SCH ×3 (09:34→18:11)
[2019-07-26] MEDS: POLYETHYLENE GLYCOL 17 GM/PKT PO SCH ×4 (09:35→22:22)
--- NOTE | 2019-07-26 09:36 | NUR ---
ADMINISTERED MEDS PER MD ORDER, MIXED WITH APPLE SAUCE AND THICKENED WATER FOR ASPIRATION PRECAUTION, PATIENT TOLERATED WELL. MEDS EDUCATION PROVIDED TO PATIENT AND REINFORCEMENT NEEDED. HOLD HEPARIN SUBQ DUE TO LOW PLT 91 PATIENT AWAKE AND RESTING ON BED. FLACC 0. RESPIRATION EVEN AND UNLABORED ON RA. NO SIGNS OF DISTRESS NOTED. SAFETY MEASURES IN PLACE. FALL RISK PROTOCOL IN PLACE AND BED ALARM ACTIVATED. SEIZURE PRECAUTION IN PLACE AND BOTH SIDE RAILS PADDED. BED IN LOW POSITION AND CALL LIGHT WITHIN REACH.
[2019-07-26 09:37] LABS: ANION GAP 9.5 (8-16); CARBON DIOXIDE 30.7 mmol/L (21-32); CREATININE 0.9 mg/dL (0.7-1.3); POTASSIUM 4.2 mmol/L (3.5-5.1)
[2019-07-26 09:41] LABS: PHOSPHORUS 2.6 mg/dL (2.5-4.9)
--- NOTE | 2019-07-26 11:15 | NUR ---
SPECIAL EDUCATION SCIENCE TEACHER IS PROVIDING HYGIENE CARE AND REPOSITIONING PATIENT. NO SIGNS OF DISTRESS NOTED. SAFETY MEASURES IN PLACE.
--- NOTE | 2019-07-26 12:18 | NUR ---
ADMINISTERED MES VIA IVP PER MD ORDER, PATIENT TOLERATED WELL. MED EDUCATION PROVIDED TO PATIENT AND REINFORCEMENT NEEDED DUE TO MENTAL STATUS. PATIENT AWAKE AND RESTING ON BED. NO SIGNS OF DISTRESS NOTED. SFETY MEASURES IN PLACE. BED IN LOW POSITION AND CALL LIGHT WITHIN REACH. FALL RISK PROTOCOL IN PLACE AND BED ALARM ACTIVATED.
--- NOTE | 2019-07-26 13:11 | NUR ---
ADMINISTERED MEDS PER MD ORDER, MIXED WITH APPLE SAUCE AND THICKENED WATER FOR ASPIRATION PRECAUTION, PATIENT TOLERATED WELL. MEDS EDUCATION PROVIDED TO PATIENT AND REINFORCEMENT NEEDED. FLACC 0. RESPIRATION EVEN AND UNLABORED ON RA. PATIENT IS RESTING ON BED AT THIS TIME. NO SIGNS OF DISTRESS NOTED. SAFETY MEASURES IN PLACE. FALL RISK PROTOCOL IN PLACE AND BED ALARM ACTIVATED. SEIZURE PRECAUTION IN PLACE AND BOTH SIDE RAILS PADDED. BED IN LOW POSITION AND CALL LIGHT WITHIN REACH.
[2019-07-26] MEDS ORDERED: BISACODYL 10 MG SUPP RC SCH (14:00)
[2019-07-26 16:00] VITALS: BP 97/50
--- NOTE | 2019-07-26 16:12 | NUR ---
Biometrics Consultant Note: Per House Manager Janae from [place] , they cannot accept patient back at their facility if he is in need of abx iv, I informed of this.
--- NOTE | 2019-07-26 18:11 | NUR ---
ADMINISTERED MEDS PER MD ORDER, MIXED WITH APPLE SAUCE AND THICKENED WATER FOR ASPIRATION PRECAUTION, PATIENT TOLERATED WELL. MEDS EDUCATION PROVIDED TO PATIENT AND REINFORCEMENT NEEDED. FLACC 0. PONDMAN IS ASSISTING PATIENT TO EAT DINNER AT THIS TIME. NO SIGNS OF DISTRESS NOTED. SAFETY MEASURES IN PLACE. FALL RISK PROTOCOL IN PLACE AND BED ALARM ACTIVATED. SEIZURE PRECAUTION IN PLACE AND BOTH SIDE RAILS PADDED. BED IN LOW POSITION AND CALL LIGHT WITHIN REACH.
--- NOTE | 2019-07-26 19:21 | NUR ---
RECIEVED PT AWAKE , ALERT TO ENVIRONMENT STIMULI , BUT NON VERBAL , HX CEREBRAL PALSY SPASTIC , NID , V/S WNL . ON FALL /SAFETY PRECAUTION PROTOCOL - BED ALARM ON . ON SAP - ON PUREE DIET AND THICKENED LIQ. LOW HODA SCALE - INCONTINENT . PLAN OF CARE DISCUSSED BUT POOR UNDERSTANDING DUE TO MENTAL STATUS -CALL LIGHT WITHIN REACH , ON S2 PRECAUTION PROTOCOL . WILL CONT. TO MONITOR.
--- NOTE | 2019-07-26 19:21 | NUR ---
ENDORSED PATIENT AT BEDSIDE TO HITCH TECHNICIAN NURSE FOR CONTINUITY OF CARE. PATIENT AWAKE AND RESTING ON BED. NO SIGNS OF DISTRESS NOTED. SAFETY MEASURES IN PLACE. BED IN LOW POSITION AND CALL LIGHT WITHIN REACH. FALL RISK PROTOCOL IN PLACE AND BED ALARM ACTIVATED.
--- NOTE | 2019-07-26 22:00 | NUR ---
MADE ROUNDS , NO SIGN OF DISTRESS NOTED AT THIS TIME. WILL CONT, TO MONITOR.
[2019-07-27] VITALS: BP 110/60
--- NOTE | 2019-07-27 | NUR ---
VOIDED - MODERATELY SOAKED - GOOD U.O . NO SIGNS OF DISTRESS NOTED AT THIS TIME. WILL CONT. TO MONITOR.
[2019-07-27] MEDS: METOCLOPRAMIDE 10 MG/2 ML INJ VIAL IVP SCH ×3 (00:47→13:11)
--- NOTE | 2019-07-27 02:00 | NUR ---
MADE ROUNDS - SLEEPING - NO SIGNS OPF DISTRESS NOTED AT THIS TIME, STILL NO BM.
--- NOTE | 2019-07-27 04:00 | NUR ---
MADE ROUNDS . RESP. EVEN AND EQUAL . FLACC O- WILL CONT. TO MONITOR . BED ALARM ON.
[2019-07-27] MEDS: PIPERACILLIN/TAZOBACTAM 3.375 GM in DEXTROSE 5% 50 ML IV SCH ×2 (05:23→13:10)
--- NOTE | 2019-07-27 07:30 | NUR ---
ENDORSED TO AM SHIFT WITH STABLE CONDITION.
--- NOTE | 2019-07-27 07:31 | NUR ---
RECEIVED REPORT FROM FINANCIAL REPORTING ADVISOR RN. PT IS AWAKE BUT NON VERBAL AND DOES NOT SHOW KNOWLEDGE OF NAME. PT SKIN IS INTACT. IV IS IN THE R FOREARM 20G INFUSING 1/2NS @60ML/HR. PT CONTRACTED IN THE BUE/BLE. ALL NEEDS CURRENTLY MET. BED IN LOW POSITION, CALL LIGHT WITHIN REACH. BED ALARM ON FOR PT SAFETY. WILL CONTINUE TO ROUND FREQUENTLY ON PT.
[2019-07-27 08:00] VITALS: BP 104/65
[2019-07-27] MEDS: NACL 0.45% 1,000 ML IV SCH (08:25)
--- NOTE | 2019-07-27 09:40 | NUR ---
ADMINISTERED MORNING MEDS TO PT. PT TOLERATED THEM WELL. WILL CONTINUE TO ROUND FREQUENTLY ON PT. BED IN LOW POSITION, CALL LIGHT WITHIN REACH.
[2019-07-27] MEDS ORDERED: SENN-74 PO (09:49)
[2019-07-27] MEDS ORDERED: LEVO750T2 PO ×2 (09:49→17:38)
[2019-07-27] MEDS: DIVALPROEX 500 MG TABEC PO SCH (09:55)
[2019-07-27] MEDS: DOCUSATE SODIUM 100 MG GELCAP PO SCH (09:55)
[2019-07-27] MEDS: PANTOPRAZOLE 40 MG INJ VIAL IVP SCH (09:55)
[2019-07-27] MEDS: BACLOFEN 10 MG TAB PO SCH ×2 (09:56→13:10)
[2019-07-27] MEDS: levETIRAcetam 500 MG TAB PO SCH (09:56)
[2019-07-27] MEDS: SENNA 8.6 MG TAB PO SCH ×2 (09:56→13:10)
[2019-07-27] MEDS: GLYCOPYRROLATE 1 MG TAB PO SCH (09:56)
[2019-07-27] MEDS: POLYETHYLENE GLYCOL 17 GM/PKT PO SCH ×2 (09:57→13:10)
[2019-07-27 11:07] LABS: BASOPHILS % (AUTO) 0.3 % (0.0-2.0); EOSINOPHILS # (AUTO) 0.1 K/uL (0-0.4); EOSINOPHILS % (AUTO) 1.1 % (0.0-4.0); HEMATOCRIT 41.9 % (36-52); HEMOGLOBIN 13.9 g/dL (12.0-18.0); LYMPHOCYTES # (AUTO) 1.6 K/uL (2.0-11.5); LYMPHOCYTES % (AUTO) 22.8 % (20.5-51.1); MEAN CORPUSCULAR HEMOGLOBIN 30 pg (27-31); MEAN CORPUSCULAR HGB CONC 33 g/dL (33-37); MEAN CORPUSCULAR VOLUME 89.8 fL (80-94); MONOCYTES # (AUTO) 0.5 K/uL (0.8-1.0); MONOCYTES % (AUTO) 7.8 % (1.7-9.3); NEUTROPHILS # (AUTO) 4.8 K/uL (1.8-7.7); PLATELET COUNT (AUTO) 100 K/uL (140-450); RED BLOOD CELL COUNT(AUTO) 4.66 MIL/uL (4.20-6.10)
[2019-07-27 11:18] LABS: ANION GAP 10.6 (8-16); CARBON DIOXIDE 31.2 mmol/L (21-32); CREATININE 0.8 mg/dL (0.7-1.3); POTASSIUM 3.8 mmol/L (3.5-5.1)
--- NOTE | 2019-07-27 11:24 | NUR ---
PT RESTING. ALL NEEDS MET. WILL CONTINUE TO ROUND FREQUENTLY ON PT. BED IN LOW POSITION, CALL LIGHT WITHIN REACH. BED ALARM ON FOR SAFETY.
--- NOTE | 2019-07-27 12:58 | NUR ---
SPOKE TO PANFILO THE CAREGIVER. SHE GAVE ME TAERAS NUMBER AT [phone]. SHE SAID THAT SHE WILL CALL HER SUPPLY CHAIN MANAGER TO CONFIRM A ROOM AND CALL ME BACK WITH WHAT TIME THEY WILL ARRANGE TRANSPORT
--- NOTE | 2019-07-27 13:25 | NUR ---
PT RESTING. ALL NEEDS MET. WILL CONTINUE TO ROUND FREQUENTLY ON PT. BED IN LOW POSITION, CALL LIGHT WITHIN REACH.
--- NOTE | 2019-07-27 15:29 | NUR ---
PT RESTING. ALL NEEDS MET. WILL CONTINUE TO ROUND FREQUENTLY ON PT.
[2019-07-27 16:00] VITALS: BP 102/63
--- NOTE | 2019-07-27 16:50 | NUR ---
[facility]. PT DISCHARGE PAPERWORK SIGNED. ALL PERSONAL BELONGINGS TAKEN WITH PT. IV REMOVED WITH TIP INTACT. PICKUP PERSON TOOK WHEELCHAIR ALONG WITH HARNESS FOR LIFT. VS STABLE ON DC. PT LEFT IN STABLE CONDITION.
== END 2019-07-27 16:50 | DRG 137 ==
LOC: MED 22:21 → MTU 07-24 02:23
PROVIDERS: ADMIT General Practice; ATTEND General Practice
DX: J69.0 Pneumonitis due to inhalation of food and vomit (principal); K56.699 Other intestinal obstruction unspecified as to partial versus complete obstruction; R53.2 Functional quadriplegia; E87.0 Hyperosmolality and hypernatremia; G80.9 Cerebral palsy, unspecified; E86.0 Dehydration; F73 Profound intellectual disabilities; K59.09 Other constipation; H54.7 Unspecified visual loss; K21.9 Gastro-esophageal reflux disease without esophagitis; K59.8 Other specified functional intestinal disorders; G40.909 Epilepsy, unspecified, not intractable, without status epilepticus; K59.00 Constipation, unspecified; E87.6 Hypokalemia
CPT/HCPCS: 36415; 71045; 74018; 80048; 80053; 81003; 82272; 82550; 83036; 83605; 83690; 83735; 83880; 84100; 84439; 84443; 85025; 85610; 85730; 87081; 92610; 93005; 96360; 99285; C9113; J1644; J2270; J2543; J2765; J7030; J7060; Q0092

== ENCOUNTER 2021-09-27 12:51 | Inpatient (IN) | payer MEDICAID, SELFPAY ==
[~2021-09-27] VITALS: Ht 142.2 cm; Wt 65.8 kg
[~2021-09-27 12:51] MED LIST changes: +ASPI81CT95 PO; +ATOR20TA40 PO; +BACL10TA4 PO; +DICLOFENAC 1% GEL TP; +LEVO-315 PO; +METO-485 PO; -QUET25TA PO; +VALP250S20 PO; -[UNRECOGNIZED DRUG - CODE] PO; -[UNRECOGNIZED DRUG - CODE] PO
--- NOTE | 2021-09-27 13:06 | NUR ---
PT BIBA TAKEN TO ER BED 8.
[2021-09-27 13:09] VITALS: BP 141/80
[2021-09-27] MEDS ORDERED: NACL 0.9% 1,000 ML IV ONE (13:55)
[2021-09-27 14:41] LABS: BASOPHILS % (AUTO) 0.5 % (0.0-2.0); EOSINOPHILS # (AUTO) 0.2 K/uL (0-0.4); EOSINOPHILS % (AUTO) 4.4 % (0.0-4.0); HEMATOCRIT 41.7 % (36-52); LYMPHOCYTES # (AUTO) 1.9 K/uL (2.0-11.5); LYMPHOCYTES % (AUTO) 34.6 % (20.5-51.1); MEAN CORPUSCULAR HEMOGLOBIN 29 pg (27-31); MEAN CORPUSCULAR HGB CONC 34 g/dL (33-37); MEAN CORPUSCULAR VOLUME 85.4 fL (80-94); MONOCYTES # (AUTO) 0.4 K/uL (0.8-1.0); MONOCYTES % (AUTO) 7.9 % (1.7-9.3); NEUTROPHILS # (AUTO) 2.8 K/uL (1.8-7.7); NEUTROPHILS % (AUTO) 52.6 % (42.2-75.2); PLATELET COUNT (AUTO) 127 K/uL (140-450); RED BLOOD CELL COUNT(AUTO) 4.88 MIL/uL (4.20-6.10); RED CELL DISTRIBUTION WIDTH 13.6 % (11.6-13.7); WHITE BLOOD COUNT (AUTO) 5.4 K/uL (4.8-10.8)
[2021-09-27 15:01] LABS: ALBUMIN 3.6 g/dL (3.4-5.0); ANION GAP 9.4 (8-16); CARBON DIOXIDE 29.4 mmol/L (21-32); CREATININE 0.8 mg/dL (0.6-1.3); POTASSIUM 3.8 mmol/L (3.5-5.1); TOTAL BILIRUBIN 0.2 mg/dL (0.0-1.0)
--- NOTE | 2021-09-27 15:19 | NUR ---
PT EYES CLOSED VISIBLE EQUAL RISE AND FALL OF CHEST, VSS, WILL CONTINUE TO MONITOR.
[2021-09-27] MEDS ORDERED: DEXT 5% / NACL 0.45% 1,000 ML IV ONE (15:40)
--- NOTE | 2021-09-27 15:47 | NUR ---
PT TAKEN TO CT VIA RVIK.
--- NOTE | 2021-09-27 16:01 | NUR ---
PT TAKEN TO ER BED 8 VIA [facility].
[2021-09-27] MEDS ORDERED: cefTRIAXone 1,000 MG VIAL ONE (16:07)
--- NOTE | 2021-09-27 16:34 | NUR ---
COLLECTED COVID ILIR AND INFLUENZA A&B GAVE TO VON CAR GROOMER.
[2021-09-27] MEDS ORDERED: ACETAMINOPHEN 325 MG TAB PO PRN (17:10)
[2021-09-27] MEDS ORDERED: HYDROcodone/APAP 5/325 MG 1 TAB TAB PO PRN (17:10)
[2021-09-27] MEDS ORDERED: SODIUM PHOSPHATE 118 ML ENEM RC PRN (17:10)
[2021-09-27] MEDS ORDERED: ONDANSETRON 4 MG/2 ML VIAL IVP PRN (17:10)
[2021-09-27] MEDS ORDERED: SIMETHICONE 80 MG TAB.CHEW PO PRN (17:10)
[2021-09-27] MEDS ORDERED: LORazepam 2 MG/ML VIAL IVP PRN (17:10)
[2021-09-27] MEDS ORDERED: levETIRAcetam 100 MG/ML VIAL IV ONE (17:36)
--- NOTE | 2021-09-27 17:53 | NUR ---
MISSILEMAN AT PT BEDSIDE.
[2021-09-27] MEDS ORDERED: ACETAMINOPHEN 325 MG PO SCH (18:00)
[2021-09-27] MEDS ORDERED: ACETAMINOPHEN 325 MG TAB ONE (19:06)
[2021-09-27] MEDS ORDERED: CRUSHER, PILL MC ONE (19:07)
--- NOTE | 2021-09-27 19:33 | NUR ---
GAVE REPORT TO VON CEJA. TRANSFER OF CARE AT THIS TIME.
--- NOTE | 2021-09-27 20:00 | NUR ---
RESTING IN BED ASSISTED WITH REPOSITIONING. MED WAS GIVEN WITH APPLE SAUCE, TOLERATED WELL
[2021-09-27] MEDS: ACETAMINOPHEN 650 MG/20.3 ML UDC GT SCH (20:26)
[2021-09-27] MEDS ORDERED: ATORVASTATIN 20 MG TAB PO SCH (21:00)
[2021-09-27] MEDS ORDERED: NON-FORMULARY ITEM (Chlorhexidine Gluconate (Periogard 480 Ml) 15 ML) PO SCH (21:00)
[2021-09-27] MEDS ORDERED: NON-FORMULARY ITEM (Levetiracetam* (Keppra Xr*) 750 MG) PO SCH (21:00)
[2021-09-27] MEDS ORDERED: DICLOFENAC TP SCH (21:00)
[2021-09-27] MEDS ORDERED: DIMETHICONE TP SCH (21:00)
[2021-09-27] MEDS ORDERED: VALPROIC ACID 500 MG PO SCH (21:00)
[2021-09-27] MEDS ORDERED: ZINC OXIDE TP SCH (21:00)
[2021-09-27] MEDS ORDERED: levETIRAcetam 100 MG/ML ORASYR PO SCH (21:00)
--- NOTE | 2021-09-28 | NUR ---
Patient appears to be resting comfortably in bed. Vital Signs within normal limits. Respirations even and unlabored.
[2021-09-28] MEDS: VALPROIC ACID 250 MG/5 ML UDC PO SCH ×2 (01:30→09:00)
[2021-09-28] MEDS: SENNA 8.6 MG TAB PO SCH ×2 (05:12→09:00)
[2021-09-28] MEDS: GLYCOPYRROLATE 1 MG TAB PO SCH ×2 (05:12→09:00)
[2021-09-28] MEDS: CALCIUM CARBONATE 500 MG TAB.CHEW PO SCH ×2 (05:13→11:43)
[2021-09-28] MEDS: ACETAMINOPHEN 650 MG/20.3 ML UDC GT SCH ×2 (05:14→06:00)
--- NOTE | 2021-09-28 08:09 | NUR ---
PT SOILED IN BM, IV OUT. PT WAS CLEANED WITH NEW LINEN AND GAWN.
[2021-09-28] MEDS ORDERED: ATROPINE 1% OP SOL 5ML BTL SL SCH (09:00)
[2021-09-28] MEDS ORDERED: ASPIRIN 81 MG TAB.CHEW PO SCH (09:00)
[2021-09-28] MEDS ORDERED: NACL 0.9% PO SCH (09:00)
[2021-09-28] MEDS ORDERED: ATROPINE SULFATE PO SCH (09:00)
[2021-09-28] MEDS ORDERED: BACLOFEN 10 MG TAB PO SCH (09:00)
[2021-09-28] MEDS ORDERED: METOCLOPRAMIDE 10 MG TAB PO SCH (09:00)
[2021-09-28] MEDS ORDERED: CHOLECALCIFEROL 1,000 IU TAB PO SCH (09:00)
[2021-09-28] MEDS ORDERED: DEXLANSOPRAZOLE PO SCH (09:00)
[2021-09-28] MEDS ORDERED: POLYETHYLENE GLYCOL 17 GM/PKT PO SCH (09:00)
[2021-09-28] MEDS ORDERED: PANTOPRAZOLE 40 MG TABEC PO SCH (09:00)
[2021-09-28] MEDS ORDERED: DOCUSATE 100 MG/10 ML UDC PO SCH (09:00)
--- NOTE | 2021-09-28 09:07 | NUR ---
1000 ML OF URINE EMPTED FROM F/C.
--- NOTE | 2021-09-28 09:09 | NUR ---
PATIENT HAS BEEN SCREENED AND CATEGORIZED MODERATE NUTRITION RISK. PATIENT WILL BE SEEN WITHIN 3-5 DAYS OF ADMISSION. 09/30/21-10/02/21 REVIEWED BY DANNY JIMENEZ RD
[2021-09-28 09:37] LABS: BASOPHILS % (AUTO) 0.7 % (0.0-2.0); EOSINOPHILS # (AUTO) 0.2 K/uL (0-0.4); EOSINOPHILS % (AUTO) 2.8 % (0.0-4.0); HEMATOCRIT 42.9 % (36-52); HEMOGLOBIN 14.4 g/dL (12.0-18.0); LYMPHOCYTES # (AUTO) 1.7 K/uL (2.0-11.5); LYMPHOCYTES % (AUTO) 28.1 % (20.5-51.1); MEAN CORPUSCULAR HEMOGLOBIN 29 pg (27-31); MEAN CORPUSCULAR HGB CONC 34 g/dL (33-37); MEAN CORPUSCULAR VOLUME 86.3 fL (80-94); MONOCYTES # (AUTO) 0.5 K/uL (0.8-1.0); MONOCYTES % (AUTO) 8.6 % (1.7-9.3); NEUTROPHILS # (AUTO) 3.6 K/uL (1.8-7.7); NEUTROPHILS % (AUTO) 59.8 % (42.2-75.2); PLATELET COUNT (AUTO) 133 K/uL (140-450); RED BLOOD CELL COUNT(AUTO) 4.98 MIL/uL (4.20-6.10); RED CELL DISTRIBUTION WIDTH 13.6 % (11.6-13.7); WHITE BLOOD COUNT (AUTO) 6.1 K/uL (4.8-10.8)
[2021-09-28 09:42] LABS: ANION GAP 12.4 (8-16); CARBON DIOXIDE 30.1 mmol/L (21-32); CREATININE 0.8 mg/dL (0.6-1.3); POTASSIUM 4.5 mmol/L (3.5-5.1)
[2021-09-28 09:48] LABS: MAGNESIUM 1.7 mg/dL (1.8-2.4); PHOSPHORUS 3.6 mg/dL (2.5-4.9)
--- NOTE | 2021-09-28 11:26 | NUR ---
CALLED TRACTOR TRAILER OPERATOR OF FACILITY SPOKE TO VICKY TAY 1 HR FOR PICKUP
[2021-09-28 11:49] VITALS: BP 97/53
--- NOTE | 2021-09-28 12:05 | NUR ---
GAVE REPORT TO VICKY AT HIS FACILITY AND GAVE REPORT.
--- NOTE | 2021-09-28 12:31 | NUR ---
DC PLANNING: PATIENT IS FROM [facility] PATIENT CLEARED BY DR MONTAÑO FOR DC, DC ORDER ENTERED BY DR CAVANAUGH. CM SPOKE TO [facility] IN THE ED, TRANSPORT HAS BEEN ARRANGED THROUGH [facility] AND REPORT HAS BEEN CALLED TO THE FACILITY. CM WILL FOLLOW.
--- NOTE | 2021-09-28 12:36 | NUR ---
F/C REMOVED WITH 250 ML URINE.
--- NOTE | 2021-09-28 12:39 | NUR ---
SPOKE WITH VICKY AT [facility] AND CONFIRM THE ADRESS.
--- NOTE | 2021-09-28 13:50 | NUR ---
PT WAS PICKED UP BY [facility].
[2021-09-28] MEDS ORDERED: levETIRAcetam 100 MG/ML ORASYR PO SCH (21:00)
== END 2021-09-28 13:50 | DRG 53 ==
LOC: MED 12:51 → MTU 15:41
PROVIDERS: ADMIT Preventive Medicine Preventive Medicine/Occupational Environmental Medicine; ATTEND Preventive Medicine Preventive Medicine/Occupational Environmental Medicine
DX: G40.909 Epilepsy, unspecified, not intractable, without status epilepticus (principal); D69.6 Thrombocytopenia, unspecified; G91.9 Hydrocephalus, unspecified; E83.51 Hypocalcemia; G80.0 Spastic quadriplegic cerebral palsy; J18.9 Pneumonia, unspecified organism; E16.2 Hypoglycemia, unspecified; E78.5 Hyperlipidemia, unspecified; F79 Unspecified intellectual disabilities; G31.9 Degenerative disease of nervous system, unspecified; K21.9 Gastro-esophageal reflux disease without esophagitis; K59.00 Constipation, unspecified; Z20.822 Contact with and (suspected) exposure to COVID-19; Z91.040 Latex allergy status; Z79.899 Other long term (current) drug therapy; Z79.82 Long term (current) use of aspirin
CPT/HCPCS: 36415; 70450; 71045; 80048; 80053; 80173; 83735; 84100; 85025; 85651; 86140; 87040; 87804; 96365; 96367; 99285; J0696; J1953; J7060; Q0092

== ENCOUNTER 2024-02-14 08:57 | Inpatient (IN) | payer MEDICAID, OTHER ==
[~2024-02-14] VITALS: Ht 152.4 cm; Wt 51.7 kg
[~2024-02-14 08:57] MED LIST changes: +CHLO473M PO; -CHLO480L1 PO; +CHOL100084 PO; -LEVO-315 PO; +LEVO-481 PO; -SIME80TA22 PO; +SIME80TA41 PO; -VITD1000 PO
[2024-02-14 09:05] VITALS: BP 125/82; PULSE 68; RESP 20; TEMP 96.8; O2SAT 99
[2024-02-14] MEDS: KETOROLAC 60 MG/2 ML VIAL IM ONE (11:00)
[2024-02-14 11:35] LABS: BASOPHILS % (AUTO) 0.8 % (0.0-2.0); EOSINOPHILS # (AUTO) 0.1 K/uL (0-0.4); EOSINOPHILS % (AUTO) 1.9 % (0.0-4.0); HEMATOCRIT 40.5 % (36-52); HEMOGLOBIN 13.5 g/dL (12.0-18.0); LYMPHOCYTES # (AUTO) 2.5 K/uL (2.0-11.5); LYMPHOCYTES % (AUTO) 42.7 % (20.5-51.1); MEAN CORPUSCULAR HEMOGLOBIN 29 pg (27-31); MEAN CORPUSCULAR HGB CONC 33 g/dL (33-37); MEAN CORPUSCULAR VOLUME 86.6 fL (80-94); MONOCYTES # (AUTO) 0.5 K/uL (0.8-1.0); MONOCYTES % (AUTO) 7.7 % (1.7-9.3); NEUTROPHILS # (AUTO) 2.8 K/uL (1.8-7.7); NEUTROPHILS % (AUTO) 46.9 % (42.2-75.2); PLATELET COUNT (AUTO) 136 K/uL (140-450); RED BLOOD CELL COUNT(AUTO) 4.67 MIL/uL (4.20-6.10); RED CELL DISTRIBUTION WIDTH 14.6 % (11.6-13.7); WHITE BLOOD COUNT (AUTO) 5.9 K/uL (4.8-10.8)
[2024-02-14 11:52] LABS: ANION GAP 12.4 (8-16); CALCIUM 8.9 mg/dL (8.5-10.1); CARBON DIOXIDE 31.5 mmol/L (21-32); CREATININE 1.1 mg/dL (0.6-1.3); POTASSIUM 3.9 mmol/L (3.5-5.1)
[2024-02-14 11:59] LABS: ALBUMIN 3.1 g/dL (3.4-5.0); BILIRUBIN,DIRECT 0.1 mg/dL (0.0-0.3); TOTAL BILIRUBIN 0.3 mg/dL (0.0-1.0); TOTAL PROTEIN, SERUM 6.5 g/dL (6.4-8.2)
[2024-02-14] MEDS ORDERED: ACETAMINOPHEN 325 MG TAB PO PRN (15:35)
[2024-02-14] MEDS ORDERED: ONDANSETRON 4 MG/2 ML VIAL IVP PRN (15:35)
[2024-02-14] MEDS ORDERED: ZOLPIDEM 5 MG TAB PO PRN (15:35)
[2024-02-14] MEDS: NACL 0.9% 1,000 ML IV SCH (17:01)
[2024-02-14] MEDS ORDERED: CRUSHER, PILL MC ONE (17:25)
[2024-02-14] MEDS: BACLOFEN 10 MG TAB PO SCH (17:28)
[2024-02-14 21:00] VITALS: PULSE 87; RESP 18; O2SAT 97
[2024-02-14] MEDS: ATORVASTATIN 20 MG TAB PO SCH (21:44)
[2024-02-14] MEDS: CALCIUM CARBONATE 500 MG TAB.CHEW PO SCH (21:45)
[2024-02-14] MEDS: GLYCOPYRROLATE 1 MG TAB PO SCH (21:45)
[2024-02-14 22:00] VITALS: BP 98/57; PULSE 87; RESP 18; TEMP 98.2; O2SAT 97
[2024-02-15 04:00] VITALS: BP 96/59; PULSE 67; RESP 18; TEMP 96.8; O2SAT 98
[2024-02-15 06:28] LABS: BASOPHILS % (AUTO) 0.4 % (0.0-2.0); EOSINOPHILS # (AUTO) 0.1 K/uL (0-0.4); EOSINOPHILS % (AUTO) 1.9 % (0.0-4.0); HEMATOCRIT 38.5 % (36-52); HEMOGLOBIN 12.8 g/dL (12.0-18.0); LYMPHOCYTES # (AUTO) 1.9 K/uL (2.0-11.5); LYMPHOCYTES % (AUTO) 36.4 % (20.5-51.1); MEAN CORPUSCULAR HEMOGLOBIN 29 pg (27-31); MEAN CORPUSCULAR HGB CONC 33 g/dL (33-37); MEAN CORPUSCULAR VOLUME 86.3 fL (80-94); MONOCYTES # (AUTO) 0.5 K/uL (0.8-1.0); MONOCYTES % (AUTO) 8.8 % (1.7-9.3); NEUTROPHILS # (AUTO) 2.8 K/uL (1.8-7.7); NEUTROPHILS % (AUTO) 52.5 % (42.2-75.2); PLATELET COUNT (AUTO) 117 K/uL (140-450); RED BLOOD CELL COUNT(AUTO) 4.46 MIL/uL (4.20-6.10); RED CELL DISTRIBUTION WIDTH 14.5 % (11.6-13.7); WHITE BLOOD COUNT (AUTO) 5.3 K/uL (4.8-10.8)
[2024-02-15 07:03] LABS: ALBUMIN 2.7 g/dL (3.4-5.0); ANION GAP 12.4 (8-16); CALCIUM 8.3 mg/dL (8.5-10.1); CARBON DIOXIDE 25.5 mmol/L (21-32); POTASSIUM 3.9 mmol/L (3.5-5.1); TOTAL BILIRUBIN 0.3 mg/dL (0.0-1.0); TOTAL PROTEIN, SERUM 5.6 g/dL (6.4-8.2)
[2024-02-15 08:00] VITALS: BP 95/64; PULSE 61; PULSE 67; RESP 17; RESP 18; TEMP 97.2; O2SAT 98
[2024-02-15] MEDS ORDERED: DOCUSATE SODIUM 100 MG GELCAP PO SCH (09:00)
[2024-02-15] MEDS: ASPIRIN 81 MG TAB.CHEW PO SCH (09:21)
[2024-02-15] MEDS: DOCUSATE SODIUM 100 MG GELCAP PO SCH (09:21)
[2024-02-15] MEDS: CHOLECALCIFEROL 1,000 IU TAB PO SCH (09:21)
[2024-02-15] MEDS: METOCLOPRAMIDE 10 MG TAB PO SCH (09:22)
[2024-02-15] MEDS: PANTOPRAZOLE 40 MG INJ VIAL IVP SCH (09:41)
[2024-02-15] MEDS ORDERED: SIMETHICONE 80 MG TAB.CHEW PO PRN (10:20)
[2024-02-15] MEDS: POLYETHYLENE GLYCOL 17 GM/PKT PO SCH (13:13)
[2024-02-15 16:00] VITALS: BP 100/59; PULSE 67; RESP 18; TEMP 97.3; O2SAT 98
[2024-02-15 20:00] VITALS: PULSE 67; RESP 18; O2SAT 98
[2024-02-15] MEDS: SENNA 8.6 MG TAB PO SCH (20:23)
[2024-02-16 06:49] LABS: BASOPHILS % (AUTO) 0.8 % (0.0-2.0); EOSINOPHILS # (AUTO) 0.1 K/uL (0-0.4); EOSINOPHILS % (AUTO) 3.3 % (0.0-4.0); HEMATOCRIT 35.9 % (36-52); HEMOGLOBIN 12.2 g/dL (12.0-18.0); LYMPHOCYTES # (AUTO) 1.8 K/uL (2.0-11.5); MEAN CORPUSCULAR HEMOGLOBIN 29 pg (27-31); MEAN CORPUSCULAR HGB CONC 34 g/dL (33-37); MEAN CORPUSCULAR VOLUME 86.7 fL (80-94); MONOCYTES # (AUTO) 0.5 K/uL (0.8-1.0); MONOCYTES % (AUTO) 10.4 % (1.7-9.3); NEUTROPHILS # (AUTO) 2.1 K/uL (1.8-7.7); NEUTROPHILS % (AUTO) 45.5 % (42.2-75.2); PLATELET COUNT (AUTO) 114 K/uL (140-450); RED BLOOD CELL COUNT(AUTO) 4.14 MIL/uL (4.20-6.10); RED CELL DISTRIBUTION WIDTH 14.5 % (11.6-13.7); WHITE BLOOD COUNT (AUTO) 4.5 K/uL (4.8-10.8)
[2024-02-16 07:14] LABS: ALBUMIN 2.7 g/dL (3.4-5.0); ANION GAP 11.6 (8-16); CALCIUM 8.2 mg/dL (8.5-10.1); CARBON DIOXIDE 26.9 mmol/L (21-32); POTASSIUM 3.5 mmol/L (3.5-5.1); TOTAL BILIRUBIN 0.3 mg/dL (0.0-1.0); TOTAL PROTEIN, SERUM 5.5 g/dL (6.4-8.2)
[2024-02-16 08:00] VITALS: BP 105/70; PULSE 66; RESP 17; RESP 18; TEMP 97; O2SAT 96; O2SAT 97
[2024-02-16] MEDS: SODIUM PHOSPHATE 118 ML ENEM RC SCH (10:46)
[2024-02-16 16:00] VITALS: BP 121/87; PULSE 83; RESP 18; TEMP 98; O2SAT 96
[2024-02-16 20:00] VITALS: RESP 20
[2024-02-17 06:53] LABS: BASOPHILS % (AUTO) 0.6 % (0.0-2.0); EOSINOPHILS # (AUTO) 0.1 K/uL (0-0.4); EOSINOPHILS % (AUTO) 1.9 % (0.0-4.0); HEMATOCRIT 40.7 % (36-52); HEMOGLOBIN 13.9 g/dL (12.0-18.0); LYMPHOCYTES # (AUTO) 1.9 K/uL (2.0-11.5); MEAN CORPUSCULAR HEMOGLOBIN 29 pg (27-31); MEAN CORPUSCULAR HGB CONC 34 g/dL (33-37); MEAN CORPUSCULAR VOLUME 85.6 fL (80-94); MONOCYTES # (AUTO) 0.5 K/uL (0.8-1.0); MONOCYTES % (AUTO) 9.3 % (1.7-9.3); NEUTROPHILS # (AUTO) 3.1 K/uL (1.8-7.7); NEUTROPHILS % (AUTO) 55.2 % (42.2-75.2); PLATELET COUNT (AUTO) 146 K/uL (140-450); RED BLOOD CELL COUNT(AUTO) 4.76 MIL/uL (4.20-6.10); RED CELL DISTRIBUTION WIDTH 13.9 % (11.6-13.7); WHITE BLOOD COUNT (AUTO) 5.7 K/uL (4.8-10.8)
[2024-02-17 07:19] LABS: CALCIUM 8.6 mg/dL (8.5-10.1); CARBON DIOXIDE 24.5 mmol/L (21-32); CREATININE 0.9 mg/dL (0.6-1.3); POTASSIUM 3.5 mmol/L (3.5-5.1); TOTAL BILIRUBIN 0.5 mg/dL (0.0-1.0)
[2024-02-17 07:57] VITALS: RESP 20
[2024-02-17 08:00] VITALS: BP 102/59; PULSE 67; RESP 18; TEMP 97; O2SAT 98
[2024-02-17] MEDS: LORazepam 1 MG TAB PO PRN (09:46)
[2024-02-17 15:07] VITALS: BP 112/74; PULSE 79; RESP 19; TEMP 97.2
== END 2024-02-17 18:00 | DRG 247 ==
LOC: MED 08:57 → MMU 15:38 → MTU 18:56
PROVIDERS: ADMIT Student in an Organized Health Care Education/Training Program; ATTEND Student in an Organized Health Care Education/Training Program
DX: K56.41 Fecal impaction (principal); E43 Unspecified severe protein-calorie malnutrition; R62.7 Adult failure to thrive; G80.9 Cerebral palsy, unspecified; K21.9 Gastro-esophageal reflux disease without esophagitis; Z79.899 Other long term (current) drug therapy; Z91.040 Latex allergy status; Z79.82 Long term (current) use of aspirin; Z68.22 Body mass index [BMI] 22.0-22.9, adult
CPT/HCPCS: 36415; 74018; 80048; 80053; 80076; 82150; 83690; 85025; 87081; 92526; 96372; 99285; C9113; J1885; J8597